=== PATIENT | male | born 1985 | race Asian ===

== ENCOUNTER → 2018-06-02 | Outpatient (CLI) | payer OTHER ==
[~2018-06-02] VITALS: Ht 180.3 cm; Wt 64.4 kg
[~2018-06-02] MED LIST: ASCORBIC ACID500 M3 PO; RANITIDINE HCL150 M1 PO
== END | disposition home or self-care (01) ==
LOC: AMB 07:17
DX: R68.89 Other general symptoms and signs (principal); R05 Cough; R09.82 Postnasal drip; R14.0 Abdominal distension (gaseous); G89.29 Other chronic pain; M54.5 Low back pain; F17.200 Nicotine dependence, unspecified, uncomplicated; Z80.0 Family history of malignant neoplasm of digestive organs; Z83.3 Family history of diabetes mellitus; Z88.8 Allergy status to other drugs, medicaments and biological substances
CPT/HCPCS: 88305; 88342 TC